=== PATIENT | male | born 1935 | race Caucasian/White ===

== ENCOUNTER 2017-02-19 08:20 | Inpatient (IN) | payer MEDICARE, BC ==
--- NOTE | ~2017-02-19 | CN ---
Consultation Report [place] [address] [facility] [place]. [address] NAME: VERONICA MAIER : 33 STATUS : REG REF PAT#: [id number] AGE: 81 ADM/REG DATE : 02/19/17 MR#: [id number] REPORT SERV DATE: 02/20/17 DICTATED BY: LORENZO ARCHIBALD DATE: 02/20/17 REPORT STATUS : Draft TRANSCRIBED BY: MODFunmilayo DATE: 02/20/17 CONSULTATION DATE OF CONSULTATION: 02/20/2017 REASON FOR THE VISIT: Heart block. HISTORY OF PRESENT ILLNESS: Mr. Maier is an 81-year-old man with paroxysmal atrial fibrillation. He presented to the hospital for elective cardioversion. When he arrived, he was in atrial fibrillation with a ventricular response at 36 beats per minute. He was subsequently cardioverted and has been bradycardic since then. He appears to be in a 2:1 heart block with a ventricular rate around 45 beats per minute. This makes him tired and dizzy, some fatigue, that is not new. In some strips, it appears that he is in a Mobitz 2 block as well. He denies presyncope or syncope at home. He does have a lot of fatigue at home. PAST MEDICAL HISTORY: 1. History of atrial fibrillation. 2. Peripheral vascular disease. 3. History of congestive heart failure with ejection fraction of 45%. 4. Hypertension. 5. Sleep apnea. 6. Pulmonary hypertension. SOCIAL HISTORY: He does not smoke. No one is in the room with him today. FAMILY HISTORY: There is coronary artery disease in the family. HOME MEDICATIONS: 1. Amiodarone 200 mg b.i.d. 2. Vitamin C. 3. Flexeril 10 mg every night at bedtime as needed. 4. Pradaxa 150 mg b.i.d. 5. Synthroid 50 mcg daily. 6. Losartan 100 mg daily. 7. Pravastatin 40 mg at bedtime. ALLERGIES: HE HAS NO KNOWN DRUG ALLERGIES. REVIEW OF SYSTEMS: A 10 system review was asked and is negative except for noted above in the history of present illness. No recent cold or flu symptoms. No new medications. PHYSICAL EXAMINATION: Consultation Report [place] [address] [facility] [place]. [address] NAME: VERONICA MAIER : 33 STATUS : REG REF PAT#: [id number] AGE: 81 ADM/REG DATE : 02/19/17 MR#: [id number] REPORT SERV DATE: 02/20/17 DICTATED BY: LORENZO ARCHIBALD DATE: 02/20/17 REPORT STATUS : Draft TRANSCRIBED BY: PAULINO DATE: 02/20/17 VITAL SIGNS: Temperature 97.7, heart rate 41, blood pressure 182/74. GENERAL: Mr. Maier is a well-developed overweight man, in no acute distress. He is alert and oriented to person and place. HEENT: Negative. He is not dehydrated. NECK: There is no JVD in his neck. LUNGS: Clear. HEART: Tones are regular and slow. Slight murmur is heard. ABDOMEN: The abdominal exam demonstrates some distention. He has an incisional hernia at the midline. He has good bowel sounds. EXTREMITIES: Shows minimal edema. NEUROLOGIC: He moves all four extremities equally. Normal speech. SKIN: Shows some bruising. No rash. LABORATORY DATA: White blood cell count 7.6, hematocrit 38, platelet count 290. Sodium 146, potassium 5.1, BUN 19, creatinine 1.4. Free T4 is 1.37. Electrocardiogram, this shows 2:1 heart block with heart rate in the 40s. Echocardiogram, the most recent echocardiogram was done this month in Dr. Almonte's office with an ejection fraction of 45%. IMPRESSION: 1. Symptomatic 2:1 heart block. 2. Atrial fibrillation with a slow ventricular response in the 30s. 3. Need for cardiac medications for the atrial fibrillation. 4. Ejection fraction of 45%. PLAN: Mr. Maier had a symptomatic bradycardia. He has 2:1 heart block that makes him dizzy and tired. He also has atrial fibrillation with a slow ventricular response. He would therefore benefit from a pacemaker secondary to the symptomatic bradycardia. We would also potentially anticipate a high percentage of ventricular pacing even while in atrial fibrillation. Ejection fraction is 45%. Due to this, he would benefit from a biventricular device secondary to block HF criteria. I have discussed this situation with the patient. We discussed procedural details, indications, alternatives, and a long list of risks. He agrees with this plan. For the atrial fibrillation, he will of course need long-term anticoagulation as Dr. Almonte has done. After the pacemaker is in, he can take any antiarrhythmic or rate controlling medication required since bradycardia will no longer be an issue. Thank you for the consultation. TRAY/PAULINO Consultation Report [place] [address]. [address] NAME: VERONICA MAIER : 33 STATUS : REG REF PAT#: [id number] AGE: 81 ADM/REG DATE : 02/19/17 MR#: [id number] REPORT SERV DATE: 02/20/17 DICTATED BY: LORENZO ARCHIBALD DATE: 02/20/17 REPORT STATUS : Draft TRANSCRIBED BY: PAULINO DATE: 02/20/17 Lroenzo Archibald M.D. / [id number] CC: Sara Carrizales M.D.
--- NOTE | ~2017-02-19 | CN ---
Consultation Report [facility] [address] [place] [place]. [address] NAME: VERONICA MAIER : 31 STATUS : REG REF PAT#: [id number] AGE: 81 ADM/REG DATE : 02/19/17 MR#: [id number] REPORT SERV DATE: 02/19/17 DICTATED BY: NIYAH GERARDO DATE: 02/19/17 REPORT STATUS : Draft TRANSCRIBED BY: MODFunmilayo DATE: 02/19/17 CONSULTATION DATE OF CONSULTATION: 02/19/2017 REASON FOR CONSULT: Dyspnea and wheezing. Consult requested by Dr. Walt Almonte. CHIEF COMPLAINT: Wheezing. HISTORY OF PRESENT ILLNESS: This is an 81-year-old male with medical history of paroxysmal atrial fibrillation on chronic anticoagulation with Pradaxa, essential hypertension, bilateral carotid artery stenosis who presented to the hospital for a cardioversion by his primary halal meat packer, Dr. Almonte. The patient underwent electrical cardioversion today and successfully converted from atrial fibrillation rhythm to sinus rhythm. Post cardiac compression, it was noted that patient was noted to have significant wheezing and shortness of breath. The hospitalist team was consulted to evaluate the patient for need for further management. The patient reports that about a month ago his son and daughter were diagnosed with acute bronchitis, went to their primary care physician where they prescribed some medications (he cannot remember the names), however, few days later he reported that he developed some significant wheezing, shortness of breath, went to [facility] where he was admitted and managed for a period of about three days and was subsequently discharged home. He says since discharge he was doing very well. About a week ago, he noticed that he started having some significant wheezing again. He developed some significant wheezing and shortness of breath. He reported associated cough that is productive of whitish sputum. He denies any fever. No chills. No history of recent travel, surgery, or history of DVT or PE. The patient admits to having some intermittent lower extremity ankle edema. He denies any orthopnea. No PND. No excessive weight gain. Also, he reports that he has noticed progressive abdominal distention and has had difficulty having suffered from constipation. However, he denies any abdominal pain. No nausea. No vomiting. No diarrhea. The patient denies any chest pain. No palpitation. No presyncope or syncopal episode. He admits to snoring loud and has been told to possibly have a diagnosis of obstructive sleep apnea, but has not had a definitive sleep study. The patient reportedly admits to excessive daytime sleepiness but denies any narcolepsy. PAST MEDICAL HISTORY: 1. History of prostate cancer, status post prostate cancer surgery. 2. Paroxysmal atrial fibrillation on chronic anticoagulation with Pradaxa. 3. History of ventral hernia. 4. Essential hypertension. Consultation Report [address] [address] NAME: VERONICA MAIER : 33 STATUS : REG REF PAT#: [id number] AGE: 81 ADM/REG DATE : 02/19/17 MR#: [id number] REPORT SERV DATE: 02/19/17 DICTATED BY: NIYAH GERARDO DATE: 02/19/17 REPORT STATUS : Draft TRANSCRIBED BY: PAULINO DATE: 02/19/17 5. Morbid obesity. PAST SURGICAL HISTORY: The patient reports he has had an exploratory laparotomy before for prostate surgery. ALLERGIES: DENIES ANY KNOWN ALLERGIES. THE PATIENT HAS NO ALLERGY TO ANY PET AND DENIES ANY HISTORY OF SEASONAL ALLERGIES. SOCIAL HISTORY: He denies smoking cigarettes, drinking alcohol, or illicit drug use. The patient reports that his about a year ago. Presently, he lives alone but spent most time with his children. He reports that his children are active smokers and smoke about a pack of cigarettes a day. He may have been exposed to secondhand smoking as well. FAMILY HISTORY: Significant for history of lung cancer in the father who at the age of 49. Also, his sister and his brother also have diagnosis of lung cancer. No history of PA in the family. REVIEW OF SYSTEMS: A 12-point review of systems performed essentially negative. Positive findings as per HPI. PHYSICAL EXAMINATION: VITAL SIGNS: Blood pressure 168/72 mmHg, temperature 97.5, respiratory rate 24, pulse rate 42, oxygen saturation 98% on 3 L of oxygen. GENERAL: In mild acute respiratory distress with use of accessory muscle of respiration. HEENT: Pupils are equal, round, and reactive. Extraocular muscle intact. Not pale. Nonicteric. No polyp. Oral mucosa moist. NECK: No JVD. Carotid bruit present bilaterally. No thyromegaly. CHEST: Nontender, equal expansion. LUNGS: Diffuse expiratory wheezes in the mid lower lung zone bilaterally. No crackles, no rhonchi. ABDOMEN: Distended, tympanitic bowel sound normoactive. Nontender. No palpably enlarged organomegaly. LOWER EXTREMITIES: Trace of pedal edema in both lower extremities. LABORATORY DATA: Arterial blood gas on room air; pH 7.43, PaCO2 of 32, PaO2 of 74. Electrolyte profile; sodium 145, potassium 4.8, chloride 112, bicarb 28, BUN 20, creatinine 1.46, GFR 51. Glucose 1.7, calcium 9.2, magnesium 2.3. LFT currently pending. TSH 5.6, free T4 1.37. Hematology; WBC 9.4, hemoglobin 13.3, hematocrit 40.8, platelets 294. BNP 389.7. Procalcitonin currently pending. IMAGING: Chest x-ray, impression: 1. Mild venous congestion with increased interstitial prominence throughout the lungs, likely representing edema superimposed on chronic interstitial lung changes. Consultation Report [address] [address] NAME: VERONICA MAIER : 33 STATUS : REG REF PAT#: [id number] AGE: 81 ADM/REG DATE : 02/19/17 MR#: [id number] REPORT SERV DATE: 02/19/17 DICTATED BY: NIYAH GERARDO DATE: 02/19/17 REPORT STATUS : Draft TRANSCRIBED BY: PAULINO DATE: 02/19/17 2. Right bibasilar atelectasis. 3. Stable mild enlargement of the cardiac silhouette. KUB impression: 1. Marked gaseous distention of the small bowel with gas present throughout the colon to the level of the rectum likely representing some underlying ileus. 2. Postsurgical changes in the pelvis with multiple clips present bilaterally. ASSESSMENT AND PLAN: 1. Dyspnea. 2. Wheezing. 3. Pulmonary vascular congestion. 4. Interstitial lung disease. 5. Abnormal chest x-ray. 6. Paroxysmal atrial fibrillation. 7. Hypertension. 8. Morbid obesity. 9. Constipation. 10.Hypothyroidism. PLAN: 1. Dyspnea with wheezing likely related to possible acute bronchitis. We will rule out common viral etiology like influenza A and B and RSV. We will obtain a procalcitonin at this time to rule out a possible infectious etiology. I will also obtain a CT of the chest given abnormal chest x-ray with possible chronic interstitial lung changes. I will start the patient on empiric IV methylprednisone and initiate Duo-nebs q.4 hours for symptomatic relief. At this point, there is no indication for initiating antibiotics. 2. Pulmonary vascular congestion by chest x-ray. The patient has some pulmonary vascular condition with trace of pedal edema in the lower extremity. BNP slightly elevated at 389.7. I will give the patient IV Lasix 40 mg x1 dose at this time for symptomatic improvement. We will obtain patient's echocardiogram report from his primary care physician's office. 3. Abnormal chest x-ray with possible chronic interstitial lung disease changes. There is possible concern for amiodarone toxicity in this patient. However, we will obtain CT of the lungs without contrast to further elucidate the definitive etiology of this chronic lung changes noted on chest x-ray. 4. Paroxysmal atrial fibrillation. Continue chronic anticoagulation as prescribed by primary halal meat packer. 5. Essential hypertension. Please continue patient's home dose of antihypertensives at this time. 6. Hypothyroidism. The patient's TSH is slightly elevated, noted to have some episodes of bradycardia. I will increase the patient's levothyroxine to 75 mcg p.o. daily as possibly hypothyroidism may be related to the patient's bradycardia and ileus. The patient needs to be observed pending further evaluation. The hospitalist will be glad to follow this patient throughout the course of this admission. Consultation Report [address] [place]. [address] NAME: VERONICA MAIER : 33 STATUS : REG REF PAT#: [id number] AGE: 81 ADM/REG DATE : 02/19/17 MR#: [id number] REPORT SERV DATE: 02/19/17 DICTATED BY: NIYAH GERARDO DATE: 02/19/17 REPORT STATUS : Draft TRANSCRIBED BY: PAULINO DATE: 02/19/17 PETERO/PAULINO Niyah Gerardo MD / [id number] CC: Walt Almonte M.D.
--- NOTE | ~2017-02-19 | OP ---
Record Of Operation [facility] [address] [place] [address] NAME: VERONICA MAIER : 31 STATUS : REG REF PAT#: [id number] AGE: 81 ADM/REG DATE : 02/19/17 MR#: [id number] REPORT SERV DATE: 02/19/17 DICTATED BY: RIANA ALMONTE DATE: 02/19/17 REPORT STATUS : Draft TRANSCRIBED BY: MODL DATE: 02/19/17 DATE OF PROCEDURE: 02/19/2017 PROCEDURE: Direct current cardioversion. INDICATIONS: Persistent atrial fibrillation. MARINE BIOLOGIST: Riana Almonte M.D., [facility], [facility] DESCRIPTION OF PROCEDURE: The patient was brought to the cardiac short-stay in the fasting state after minimum of three weeks of documented therapeutic outpatient anticoagulation and after outpatient loading up with amiodarone. Informed consent was obtained. General anesthesia was induced under supervision of the anesthesiologist. One synchronized biphasic countershock at 200 joules was administered. Sinus rhythm with blocked PACs and bradycardic ventricular rate was observed. There were no complications. FINAL IMPRESSION: Successful direct current cardioversion of atrial fibrillation to sinus rhythm with PACs. /PAULINO Riana Almonte M.D. / [id number] CC: Sara Carrizales M.D.
[~2017-02-19 08:20] MED LIST: CORDARONE PO; COZAAR100 MG PO; DRONED400 PO; FLEX PO; PRADAXA150 MG PO; PRAVACHOL40 MG PO; PROBIOTIC PO; SYN.05 PO; VOLT75 PO
[2017-02-19 09:14] LABS: BASOPHILS 0.6 %; BASOPHILS ABSOLUTE 0.06 10/3/uL (0.0-0.16); EOSINOPHILS 1.4 %; EOSINOPHILS ABSOLUTE 0.14 10/3/uL (0.0-0.53); HEMATOCRIT 40.8 % (40.0-51.0); HEMOGLOBIN 13.3 g/dL (13.6-17.8); IMMATURE GRANULOCYTES 0.2 %; IMMATURE GRANULOCYTES ABSOLUTE 0.02 10/3/uL (0.0-0.11); LYMPHOCYTES ABSOLUTE 1.09 10/3/uL (0.67-4.30); MEAN CORPUS HGB CONC 32.6 g/dL (32.0-36.0); MEAN CORPUSCULAR HEMOGLOB 31.5 pg (26.0-34.0); MEAN CORPUSCULAR VOLUME 96.7 fL (80-100); MEAN PLATELET VOLUME 12.3 fL (9.2-13.0); MONOCYTES 13.9 %; MONOCYTES ABSOLUTE 1.38 10/3/uL (0.21-1.20); NEUTROPHILS 72.9 %; NEUTROPHILS ABSOLUTE 7.21 10/3/uL (2.02-8.40); PLATELET COUNT 294 10/3/uL (150-400); RBC DISTRIBUTION WIDTH 15.5 % (12.0-16.0); RED CELL COUNT 4.22 10/6/uL (4.7-6.1); WHITE BLOOD CELLS 9.9 10/3/uL (4.5-10.5)
[2017-02-19] MEDS ORDERED: VITC500 PO (09:15)
[2017-02-19 09:21] LABS: MANUAL DIFF NO %
[2017-02-19 09:24] LABS: BUN (BLOOD UREA NITROGEN) 20 MG/DL (6-23); CALCIUM, SERUM 9.2 MG/DL (8.5-10.4); CHLORIDE, SERUM 112 MMOL/L (96-112); CO2 (CARBON DIOXIDE) 28 MMOL/L (24-34); CREATININE 1.46 MG/DL (0.70-1.30); GFR AFRICAN AMERICAN 51 ML/MIN (>=60); GFR NON AFRICAN AMERICAN 44 ML/MIN (>=60); POTASSIUM, SERUM 4.8 MMOL/L (3.5-5.3); SODIUM, SERUM 145 MMOL/L (135-148)
[2017-02-19 09:25] LABS: GLUCOSE, SERUM 127 MG/DL (60-99)
[2017-02-19 14:40] LABS: FREE T4 1.37 NG/DL (0.76-1.46)
[2017-02-19 16:33] LABS: BE (BASE EXCESS) -2.8 MEQ/L (0 +/- 2.5); CARBOXYHEMOGLOBIN 0.9 % (0-3); HCO3 (ACTUAL BICARBONATE) 20.7 MEQ/L (23-27); HEMOBLOGIN CONTENT 12.9 G/DL (14-18); INSTRUMENT SERIAL # 8083; METHEMOGLOBIN 0.2 % (0-3); PCO2 (CO2 TENSION) 32 MMHG (35-45); PO2 (O2 TENSION) 74 MMHG (79-93); SAMPLE Arterial; pH 7.43 (7.37-7.43)
[2017-02-19 17:10] LABS: ALBUMIN 3.7 G/DL (3.5-5.0); ALKALINE PHOSPHATASE 145 U/L (45-117); DIRECT BILIRUBIN 0.1 MG/DL (0.0-0.4); INDIRECT BILIRUBIN(NOT ORDER) 0.6 MG/DL (0.1-0.9); SGOT(AST) 34 U/L (5-40); SGPT(ALT) 50 U/L (5-65); TOTAL BILIRUBIN 0.7 MG/DL (0-1.2); TOTAL PROTEIN 7.2 G/DL (6.0-8.5)
[2017-02-19 17:30] LABS: PROCALCITONIN 0.08 ng/mL (<0.5)
[2017-02-19 19:13] LABS: INFLUENZA A SCREEN NEGATIVE (NEGATIVE); INFLUENZA B SCREEN NEGATIVE (NEGATIVE)
[2017-02-20 04:00] LABS: BASOPHILS 0.1 %; BASOPHILS ABSOLUTE 0.01 10/3/uL (0.0-0.16); EOSINOPHILS 0.1 %; EOSINOPHILS ABSOLUTE 0.01 10/3/uL (0.0-0.53); HEMATOCRIT 38.2 % (40.0-51.0); HEMOGLOBIN 12.3 g/dL (13.6-17.8); IMMATURE GRANULOCYTES 0.3 %; IMMATURE GRANULOCYTES ABSOLUTE 0.02 10/3/uL (0.0-0.11); LYMPHOCYTES 5.1 %; LYMPHOCYTES ABSOLUTE 0.39 10/3/uL (0.67-4.30); MANUAL DIFF NO %; MEAN CORPUS HGB CONC 32.2 g/dL (32.0-36.0); MEAN CORPUSCULAR HEMOGLOB 31.4 pg (26.0-34.0); MEAN CORPUSCULAR VOLUME 97.4 fL (80-100); MEAN PLATELET VOLUME 12.2 fL (9.2-13.0); MONOCYTES 1.6 %; MONOCYTES ABSOLUTE 0.12 10/3/uL (0.21-1.20); NEUTROPHILS 92.8 %; NEUTROPHILS ABSOLUTE 7.03 10/3/uL (2.02-8.40); PLATELET COUNT 290 10/3/uL (150-400); RBC DISTRIBUTION WIDTH 15.8 % (12.0-16.0); RED CELL COUNT 3.92 10/6/uL (4.7-6.1); WHITE BLOOD CELLS 7.6 10/3/uL (4.5-10.5)
[2017-02-20 04:09] LABS: ALBUMIN 3.4 G/DL (3.5-5.0); BUN (BLOOD UREA NITROGEN) 19 MG/DL (6-23); CALCIUM, SERUM 8.9 MG/DL (8.5-10.4); CHLORIDE, SERUM 111 MMOL/L (96-112); CO2 (CARBON DIOXIDE) 29 MMOL/L (24-34); CREATININE 1.41 MG/DL (0.70-1.30); GFR AFRICAN AMERICAN 53 ML/MIN (>=60); GFR NON AFRICAN AMERICAN 46 ML/MIN (>=60); PHOSPHORUS, SERUM 4.2 MG/DL (2.5-4.5); POTASSIUM, SERUM 5.1 MMOL/L (3.5-5.3); SODIUM, SERUM 146 MMOL/L (135-148)
[2017-02-20 04:10] LABS: GLUCOSE, SERUM 187 MG/DL (60-99)
[2017-02-21] MEDS ORDERED: SENTAB PO (13:15)
[2017-02-21] MEDS ORDERED: P20 PO (13:16)
[2017-02-21] MEDS ORDERED: VENTOLIN HFA INH (13:17)
[2017-02-21] MEDS ORDERED: SPIRIVA INH (13:17)
[2017-02-21] MEDS ORDERED: SYMBICORT 80/4.1 INH INH (13:27)
== END 2017-02-21 14:06 | disposition home or self-care (01) | DRG 243 ==
LOC: SSUOP 08:20 → SSU1 08:28 → SSU2 14:52 → SSU1 21:00
PROVIDERS: Hospitalist; Internal Medicine Cardiovascular Disease
PROC: 5A2204Z Restoration of Cardiac Rhythm, Single (ICD-10-PCS; principal; 2017-02-19)
PROC: 0JH606Z Insertion of Pacemaker, Dual Chamber into Chest Subcutaneous Tissue and Fascia, Open Approach (ICD-10-PCS; 2017-02-20)
PROC: 02HL3JZ Insertion of Pacemaker Lead into Left Ventricle, Percutaneous Approach (ICD-10-PCS; 2017-02-20)
PROC: 02HK3JZ Insertion of Pacemaker Lead into Right Ventricle, Percutaneous Approach (ICD-10-PCS; 2017-02-20)
DX: I48.0 Paroxysmal atrial fibrillation (principal); I50.22 Chronic systolic (congestive) heart failure; I27.2 Other secondary pulmonary hypertension; I11.0 Hypertensive heart disease with heart failure; R06.02 Shortness of breath; I65.23 Occlusion and stenosis of bilateral carotid arteries; I25.10 Atherosclerotic heart disease of native coronary artery without angina pectoris; E78.00 Pure hypercholesterolemia, unspecified; R60.0 Localized edema; E66.9 Obesity, unspecified; R00.1 Bradycardia, unspecified; I73.9 Peripheral vascular disease, unspecified; G47.33 Obstructive sleep apnea (adult) (pediatric); I44.1 Atrioventricular block, second degree; K43.9 Ventral hernia without obstruction or gangrene; I34.0 Nonrheumatic mitral (valve) insufficiency; E03.9 Hypothyroidism, unspecified; Z85.46 Personal history of malignant neoplasm of prostate; Z90.79 Acquired absence of other genital organ(s); Z98.890 Other specified postprocedural states; Z80.1 Family history of malignant neoplasm of trachea, bronchus and lung
CPT/HCPCS: 33208; 33225; 36600; 71010; 71250; 74000; 74176; 80048; 80069; 80076; 82805; 82962; 83735; 83880; 84145; 84439; 84443; 85025; 87804; 87807; 92960; 93005; 94640; A9270-GY; C1769; C1887; C1892; C1898; C1900; C2621; J0360; J0690; J2405; J2920; J3010; Q9967